=== PATIENT | female | born 1940 | race Caucasian/White ===

== ENCOUNTER 2017-01-31 19:39 | Observation (INO) ==
--- NOTE | 2017-01-31 20:13 | Emergency Department Note ---
Disposition Clinical Impression: Chest pain, HTN (hypertension), HLD (hyperlipidemia), Frail elderly, Pacemaker , History of atrial fibrillation, Peripheral edema, Hypokalemia, History of urinary tract infection Disposition: Admitted As Inpatient Referrals: NO,PCP [Non-Partnered Physician] - Forms: ED Satisfaction Letter General Adult HPI - General Chief complaint: ED Chest Pain Stated complaint: "CP/Does Have Pace Maker" Time Seen by Provider: 01/31/17 20:13 Source: patient Limitations: no limitations - History of Present Illness HPI Narrative: 76-year-old female with a history of atrial fibrillation status post pacemaker placement reports emergency department complaining of chest pain. She takes Eliquis daily. There is no history of bleeding. The patient reports left- sided chest pain which is sometimes sharp and radiates to the left arm. There is no history Of trauma rash or fall. There has been no abdominal pain vomiting or diarrhea. The patient reports she was recently treated for a UTI but still has urinary symptoms. There is no history of fever or cough or runny nose or sore throat. No difficulty moving the arms or legs independently. No sudden back pain. The patient has no personal history of DVT PE or cancer apart from local skin lesions. No systemic malignancy. She has a history of chronic lower extremity edema bilaterally and does take diuretic medication. There is no history of acute unilateral leg swelling or syncope. No coughing of blood. No previous aneurysms. She had a remote cardiac catheterization many years ago, she has no personal history of CAD or stent. The patient does not usually experience chest pain. She comes in from home with her sister. The patient has a history of hypertension hyperlipidemia. There is no history of weakness or numbness of the arms or legs, there is no history of acute headache or neck pain noted. Pain Scale: 7 - Related Data Home Medications Medication Instructions Recorded Confirmed Apixaban [Eliquis] 5 mg PO BID 01/31/17 01/31/17 Esomeprazole Magnesium [Nexium] 40 mg PO DAILY 01/31/17 01/31/17 Levothyroxine [Synthroid] 88 mcg PO 0630 01/31/17 01/31/17 Metoprolol Succinate 100 mg PO QPM 01/31/17 01/31/17 Triamterene/HCTZ 37.5/25mg 1 each PO DAILY 01/31/17 01/31/17 [Dyazide] Allergies Allergy/AdvReac Type Severity Reaction Status Date / Time cefuroxime [From Ceftin] Allergy Itching Verified 01/31/17 20:04 ciprofloxacin [From Cipro] Allergy makes my Verified 01/31/17 20:04 heart race clarithromycin Allergy Itching Verified 01/31/17 20:04 Sulfa (Sulfonamide Allergy Redness of Verified 01/31/17 20:04 Antibiotics) Skin acetaminophen AdvReac Hallucinati Verified 01/31/17 20:04 [From Darvocet-N] ng morphine AdvReac Hallucinati Verified 01/31/17 20:04 ng promethazine [From Phenergan] AdvReac Vomiting Verified 01/31/17 20:04 propoxyphene AdvReac Hallucinati Verified 01/31/17 20:04 [From Darvocet-N] ng sulfamethoxazole AdvReac See Verified 01/31/17 20:04 [From Bactrim] Comments trimethoprim [From Bactrim] AdvReac See Verified 01/31/17 20:04 Comments All systems ED: reviewed and negative except as stated. Past Medical History - Past Medical History Medical history: Reports: cancer, GERD, hyperlipidemia, hypertension, thyroid disease, other Surgical history: Reports: cholecystectomy, herniorrhaphy, hysterectomy Psychiatric history: Reports: no psych history INSTALLATION DRAFTER history: Reports: no INSTALLATION DRAFTER history - Social History Smoking Status: Former smoker Smokeless Tobacco Status: No Alcohol use: Reports: none Drug use: Reports: none Physical Exam - General Limitations: no limitations General appearance: alert, in no apparent distress - Head Head exam: atraumatic, normocephalic, normal inspection - Eye Eye exam: Present: normal appearance, PERRL, EOMI. Absent: scleral icterus, conjunctival injection, miosis, mydriasis - ENT ENT exam: normal exam, normal oropharynx, mucous membranes moist, TM's normal bilaterally, normal external ear exam - Neck Neck exam: Present: normal inspection, full ROM, trachea midline. Absent: tenderness - Chest Chest inspection: Present: symmetric chest wall rise. Absent: tenderness - Respiratory Respiratory exam: Present: normal lung sounds bilaterally. Absent: respiratory distress, wheezes, stridor, accessory muscle use, prolonged expiratory phase - Cardiovascular Cardiovascular exam: Present: regular rate, normal rhythm, normal heart sounds - Abdominal Exam Abdominal exam: Present: soft, Non-Tender, normal bowel sounds. Absent: tenderness, distention, guarding, rebound, rigidity, Yin's sign, Rovsing's sign, tenderness at McBurney's Point, ascites, pulsatile mass - Extremities Exam Extremities exam: Present: full ROM, normal capillary refill, pedal edema. Absent: tenderness, joint swelling, calf tenderness - Expanded Lower Extremity Exam Lower leg exam: Absent: Homans' sign Neurovascular/Tendon exam: Present: normal capillary refill. Absent: motor deficit, sensory deficit, tendon deficit, extremity cold to touch, pallor - Back Exam Back exam: Present: normal inspection, full ROM. Absent: tenderness, CVA tenderness (R), CVA tenderness (L), vertebral tenderness - Neurological Exam Neurological exam: Present: alert, oriented X3, CN II-XII intact. Absent: motor sensory deficit - Psychiatric Psychiatric exam: Present: normal affect, normal mood - Skin Skin exam: Present: warm, dry, intact, normal color. Absent: rash, cyanosis, diaphoresis, erythema, pallor, mottled Course Vital Signs Temperature 98.1 F 01/31/17 19:59 Pulse Rate 70 01/31/17 19:59 Respiratory Rate 16 01/31/17 19:59 Blood Pressure 141/73 01/31/17 19:59 O2 Sat by Pulse Oximetry 97 01/31/17 19:59 Temperature 98.1 F 01/31/17 19:59 Pulse Rate 70 01/31/17 19:59 Respiratory Rate 16 01/31/17 19:59 Blood Pressure 141/73 01/31/17 19:59 O2 Sat by Pulse Oximetry 97 01/31/17 19:59 Oxygen Delivery Oxygen Delivery Room Air Medical Decision Making - [facility] Narrative Medical decision making narrative: The patient is elderly, has a history of hypertension and hypercholesterolemia, her EKG is abnormal and she is complaining of chest pain. Based on her age, cardiovascular risk factors, abnormal EKG, history of atrial fibrillation with pacemaker, anticoagulant therapy, and concerns for chest pain, I thought it would be appropriate to admit the patient to the hospital. I discussed the case with the hospitalist who has accepted the patient to their care. The patient is currently stable. Aspirin has been ordered. - Lab Data Lab results reviewed: Yes I reviewed the patient's lab results. Result diagrams: 01/31/17 20:18 01/31/17 20:20 Lab Results 01/31/17 01/31/17 01/31/17 Range/Units 20:15 20:18 20:18 WBC 5.0 (4.3-11.1) K/mcL RBC 4.40 (3.82-4.97) M/mcL Hgb 12.8 (11.5-15.4) g/dL Hct 38.0 (35.3-44.9) % MCV 86.4 (83.0-100.0) fL MCH 29.1 (28.0-33.3) pg MCHC 33.7 (31.6-35.5) g/dL RDW 13.0 (11.5-14.5) % Plt Count 216 (140-400) K/mcL MPV 10.3 (9.4-12.4) fL Immature Gran % 0.2 (0-4) % Seg Neutrophils % 45.7 % Lymphocytes % 46.1 % Monocytes % 6.6 % Eosinophils % 0.8 % Basophils % 0.6 % Neutrophils # 2.3 (1.6-8.9) K/mcL Lymphocytes # 2.3 (0.6-4.6) K/mcL Monocytes # 0.3 (0.0-1.3) K/mcL Eosinophils # 0.0 (0.0-0.6) K/mcL Basophils # 0.0 (0.0-0.2) K/mcL PT 12.5 H (9.4-12.1) Seconds INR 1.2 APTT 32.0 (26.0-36.0) Seconds Sodium (136-145) mEq/L Potassium (3.5-4.5) mEq/L Chloride (98-109) mEq/L Carbon Dioxide (19-29) mEq/L BUN (7-20) mg/dL Creatinine (0.57-1.11) mg/dL Est GFR ( Amer) (> 60) Est GFR (Non-Af Amer) (> 60) BUN/Creatinine Ratio (6-26) Glucose (70-99) mg/dL Calculated Osmolality (280-300) Lactic Acid (0.5-2.2) mmol/L Calcium (8.6-10.8) mg/dL Total Bilirubin (0.2-1.2) mg/dL Direct Bilirubin (0.0-0.5) mg/dL Indirect Bilirubin (0.0-1.2) mg/dL AST (5-34) Units/L ALT (0-55) Units/L Alkaline Phosphatase (38-126) Units/L Troponin I (0-0.03) ng/mL C-Reactive Protein (Less than 5) mg/L B-Natriuretic Peptide (0-100) pg/mL Serum Total Protein (6.0-8.3) g/dL Albumin (3.5-5.0) g/dL Globulin (2.4-3.5) g/dL Albumin/Globulin Ratio (1.1-2.2) Lipase (8-78) Units/L TSH (0.350-4.840) mcIU/mL Urine Color Yellow (Yellow) Urine Clarity Clear (Clear) Urine pH 6.0 (5.0-8.0) pH Units Ur Specific [place] 1.018 (1.010-1.025) Urine Protein Negative (Neg-Trace) mg/dL Urine Glucose (UA) Normal (Normal) mg/dL Urine Ketones Negative (Negative) mg/dL Urine Blood Negative (Negative) Urine Nitrite Negative (Negative) Urine Bilirubin Negative (Negative) Urine Urobilinogen Normal (Normal) mg/dL Ur Leukocyte Esterase Negative (Negative) Ur Culture Indicated? NO (NO) 01/31/17 01/31/17 01/31/17 Range/Units 20:18 20:18 20:20 WBC (4.3-11.1) K/mcL RBC (3.82-4.97) M/mcL Hgb (11.5-15.4) g/dL Hct (35.3-44.9) % MCV (83.0-100.0) fL MCH (28.0-33.3) pg MCHC (31.6-35.5) g/dL RDW (11.5-14.5) % Plt Count (140-400) K/mcL MPV (9.4-12.4) fL Immature Gran % (0-4) % Seg Neutrophils % % Lymphocytes % % Monocytes % % Eosinophils % % Basophils % % Neutrophils # (1.6-8.9) K/mcL Lymphocytes # (0.6-4.6) K/mcL Monocytes # (0.0-1.3) K/mcL Eosinophils # (0.0-0.6) K/mcL Basophils # (0.0-0.2) K/mcL PT (9.4-12.1) Seconds INR APTT (26.0-36.0) Seconds Sodium 137 (136-145) mEq/L Potassium 3.3 L (3.5-4.5) mEq/L Chloride 100 (98-109) mEq/L Carbon Dioxide 25 (19-29) mEq/L BUN 12 (7-20) mg/dL Creatinine 0.96 (0.57-1.11) mg/dL Est GFR ( Amer) > 60 (> 60) Est GFR (Non-Af Amer) 56 L (> 60) BUN/Creatinine Ratio 13 (6-26) Glucose 100 H (70-99) mg/dL Calculated Osmolality 284 (280-300) Lactic Acid (0.5-2.2) mmol/L Calcium 9.5 (8.6-10.8) mg/dL Total Bilirubin 0.9 (0.2-1.2) mg/dL Direct Bilirubin 0.2 (0.0-0.5) mg/dL Indirect Bilirubin 0.7 (0.0-1.2) mg/dL AST 17 (5-34) Units/L ALT 12 (0-55) Units/L Alkaline Phosphatase 64 (38-126) Units/L Troponin I 0.01 (0-0.03) ng/mL C-Reactive Protein 4 (Less than 5) mg/L B-Natriuretic Peptide 36 (0-100) pg/mL Serum Total Protein 7.6 (6.0-8.3) g/dL Albumin 4.0 (3.5-5.0) g/dL Globulin 3.6 H (2.4-3.5) g/dL Albumin/Globulin Ratio 1.1 (1.1-2.2) Lipase 57 (8-78) Units/L TSH 3.125 (0.350-4.840) mcIU/mL Urine Color (Yellow) Urine Clarity (Clear) Urine pH (5.0-8.0) pH Units Ur Specific [place] (1.010-1.025) Urine Protein (Neg-Trace) mg/dL Urine Glucose (UA) (Normal) mg/dL Urine Ketones (Negative) mg/dL Urine Blood (Negative) Urine Nitrite (Negative) Urine Bilirubin (Negative) Urine Urobilinogen (Normal) mg/dL Ur Leukocyte Esterase (Negative) Ur Culture Indicated? (NO) 01/31/17 Range/Units 20:20 WBC (4.3-11.1) K/mcL RBC (3.82-4.97) M/mcL Hgb (11.5-15.4) g/dL Hct (35.3-44.9) % MCV (83.0-100.0) fL MCH (28.0-33.3) pg MCHC (31.6-35.5) g/dL RDW (11.5-14.5) % Plt Count (140-400) K/mcL MPV (9.4-12.4) fL Immature Gran % (0-4) % Seg Neutrophils % % Lymphocytes % % Monocytes % % Eosinophils % % Basophils % % Neutrophils # (1.6-8.9) K/mcL Lymphocytes # (0.6-4.6) K/mcL Monocytes # (0.0-1.3) K/mcL Eosinophils # (0.0-0.6) K/mcL Basophils # (0.0-0.2) K/mcL PT (9.4-12.1) Seconds INR APTT (26.0-36.0) Seconds Sodium (136-145) mEq/L Potassium (3.5-4.5) mEq/L Chloride (98-109) mEq/L Carbon Dioxide (19-29) mEq/L BUN (7-20) mg/dL Creatinine (0.57-1.11) mg/dL Est GFR ( Amer) (> 60) Est GFR (Non-Af Amer) (> 60) BUN/Creatinine Ratio (6-26) Glucose (70-99) mg/dL Calculated Osmolality (280-300) Lactic Acid 1.3 (0.5-2.2) mmol/L Calcium (8.6-10.8) mg/dL Total Bilirubin (0.2-1.2) mg/dL Direct Bilirubin (0.0-0.5) mg/dL Indirect Bilirubin (0.0-1.2) mg/dL AST (5-34) Units/L ALT (0-55) Units/L Alkaline Phosphatase (38-126) Units/L Troponin I (0-0.03) ng/mL C-Reactive Protein (Less than 5) mg/L B-Natriuretic Peptide (0-100) pg/mL Serum Total Protein (6.0-8.3) g/dL Albumin (3.5-5.0) g/dL Globulin (2.4-3.5) g/dL Albumin/Globulin Ratio (1.1-2.2) Lipase (8-78) Units/L TSH (0.350-4.840) mcIU/mL Urine Color (Yellow) Urine Clarity (Clear) Urine pH (5.0-8.0) pH Units Ur Specific [place] (1.010-1.025) Urine Protein (Neg-Trace) mg/dL Urine Glucose (UA) (Normal) mg/dL Urine Ketones (Negative) mg/dL Urine Blood (Negative) Urine Nitrite (Negative) Urine Bilirubin (Negative) Urine Urobilinogen (Normal) mg/dL Ur Leukocyte Esterase (Negative) Ur Culture Indicated? (NO) - Radiology Data Radiology results reviewed: Yes I reviewed the patient's radiology results.
[2017-01-31 20:26] LABS: Basophils % 0.6 %; Eosinophils % 0.8 %; Hemoglobin 12.8 g/dL (11.5-15.4); Immature Granulocytes % 0.2 % (0-4); Lymphocytes # 2.3 K/mcL (0.6-4.6); Lymphocytes % 46.1 %; Mean Corpuscular HGB Conc 33.7 g/dL (31.6-35.5); Mean Corpuscular Hemoglobin 29.1 pg (28.0-33.3); Mean Corpuscular Volume 86.4 fL (83.0-100.0); Mean Platelet Volume 10.3 fL (9.4-12.4); Monocytes # 0.3 K/mcL (0.0-1.3); Monocytes % 6.6 %; Neutrophils # 2.3 K/mcL (1.6-8.9); Platelet Count 216 K/mcL (140-400); Segmented Neutrophils % 45.7 %
[2017-01-31 20:32] LABS: INR 1.2; Prothrombin Time 12.5 Seconds (9.4-12.1)
[2017-01-31 20:42] LABS: Alanine Aminotransferase 12 Units/L (0-55); Albumin/Globulin Ratio 1.1 (1.1-2.2); Alkaline Phosphatase 64 Units/L (38-126); Aspartate Amino Transferase 17 Units/L (5-34); BUN/Creatinine Ratio 13 (6-26); Bilirubin,Direct 0.2 mg/dL (0.0-0.5); Bilirubin,Indirect 0.7 mg/dL (0.0-1.2); Bilirubin,Total 0.9 mg/dL (0.2-1.2); Blood Urea Nitrogen 12 mg/dL (7-20); Calcium 9.5 mg/dL (8.6-10.8); Carbon Dioxide 25 mEq/L (19-29); Chloride 100 mEq/L (98-109); Globulin 3.6 g/dL (2.4-3.5); Glucose 100 mg/dL (70-99); Lipase 57 Units/L (8-78); Osmolality,Calculated 284 (280-300); Potassium 3.3 mEq/L (3.5-4.5); Sodium 137 mEq/L (136-145); Total Protein 7.6 g/dL (6.0-8.3); eGFR For African Americans > 60 (> 60); eGFR For Non-African Americans 56 (> 60)
[2017-01-31 20:52] LABS: C-Reactive Protein 4 mg/L (Less than 5)
[2017-01-31 21:02] LABS: Bilirubin,Urine Negative (Negative); Blood,Urine Negative (Negative); Clarity,Urine Clear (Clear); Color,Urine Yellow (Yellow); Glucose,Urine (UA) Normal (Normal); Ketones,Urine Negative (Negative); Leukocyte Esterase,Urine Negative (Negative); Nitrite,Urine Negative (Negative); Protein,Urine Negative (Neg-Trace); Specific Gravity,Urine 1.018 (1.010-1.025); Urobilinogen,Urine Normal (Normal)
[2017-01-31 21:03] LABS: Thyroid Stimulating Hormone 3.125 mcIU/mL (0.350-4.840)
[2017-01-31] MEDS ORDERED: Aspirin 325 MG TABLET PO ONE (21:29)
[2017-02-01] MEDS ORDERED: Naloxone 0.4 MG/ML INJ IVP PRN (00:44)
[2017-02-01] MEDS ORDERED: Metoprolol XL (24 HR) Succ 50 MG TAB.ER.24H PO SCH (00:45)
--- NOTE | 2017-02-01 00:48 | Internal Med History&Physical ---
Date of Encounter: 02/01/17 Time of Encounter: 00:20 Assessment and Plan (1) Chest pain Current visit: Yes Status: Acute patient with no known prior personal history of CAD but with risk factors of CAD ; age, HTN, dyslipidemia, as well as significant family history of premature CAD comes in with chest pain with both typical and atypical features concerning enough to warrant a stress test, her EKG was AFIB with no ischemic changes, her troponin was unremarkable, we will admit her for telemonitoring, cycle trops, check A1c and lipid profile, NPO for stress test in AM Qualifiers: Chest pain type: intercostal pain Qualified Code(s): R07.82 - Intercostal pain (2) Hypokalemia Current visit: Yes Status: Acute etiology may be related to cellular shifts or poor oral intake, we will replace and follow BMP (3) Hypothyroidism Current visit: Yes Status: Chronic will continue home dose of synthroid Qualifiers: Hypothyroidism type: acquired Qualified Code(s): E03.9 - Hypothyroidism, unspecified (4) GERD (gastroesophageal reflux disease) Current visit: Yes Status: Chronic will continue PPI Qualifiers: Esophagitis presence: without esophagitis Qualified Code(s): K21.9 - Gastro -esophageal reflux disease without esophagitis (5) HTN (hypertension) Current visit: Yes Status: Chronic will continue home medications with BP monitoring Qualifiers: Hypertension type: essential hypertension Qualified Code(s): I10 - Essential (primary) hypertension (6) History of atrial fibrillation Current visit: Yes Status: Chronic she is on systemic anticoagulation and rate control with metoprolol which we will continue Internal Medicine - H&P: HPI Chief complaint: Chest pain Admitted From: Emergency Dept Plans for Post Hospital Care: Home History of present illness: Ms. Mills is a 76 year old female with a history of PAF on eliquis/HTN who was brought in for chest pain. She was in her usual state of health until this morning at around 6-6:30am whilst she was trying to get her daughter to the hospital for cataract surgery when she had chest pain. The pain was located on the left side of her chest around her pacemaker, radiated to the left shoulder, was 9/10 in severity and constant. At some point it was pressure-like, she took no medications for it, the pain never went away but improved slightly to a 7/10 in severity. She waited it out until the evening when her sister convinced her to come in due to the description and persistence. She reports that she has ever had anything like this before. Her pain was associated with diaphoresis, and lightheadedness as well as nausea but no vomiting, feeling of apprehension, palpitations or dyspnea. The pain was made worse with bending over. In the ER of [place] she was found to be in AFIB but rate was controlled. She had a stress test about 3 years ago prior to her pacemaker placement that was unremarkable. 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), pacemaker (for tachybrady syndrome) - Social History Smoking Status: Former smoker Packs per day: quit in 1998 after smoking a pack and a half from the age of 17 years Smokeless Tobacco Status: No Alcohol use: occasionally Drug use: none Current living situation: Home - Independent, With Family Activity Level: Independent ambulation - Family History Father Living Status: Hx Family Cardiac Disorders: Yes Hx Family Endocrine Disorder: Yes (diabetes) Mother Living Status: Cause of : kidney failre Hx Family Cardiac Disorders: Yes Hx Family Neuromuscular Disorders: No Hx Family Neurologic Disorders: Yes (seizures) - Additional Family History Additional family history: her elder brother had an MT in his 60's and is s/p CABG, he also had an abdominal aneurysm repair, her younger brother had an MT in his 50's ad is also s/p CABG, her sister at bedside had an MT in her 50's, her father had DM and heart problems, mother in her 30's of kidney failure Internal Medicine - H&P: Meds Apixaban [Eliquis] 5 mg PO BID 01/31/17 [History] Esomeprazole Magnesium [Nexium] 40 mg PO DAILY 01/31/17 [History] Levothyroxine [Synthroid] 88 mcg PO 0630 01/31/17 [History] Metoprolol Succinate 100 mg PO QPM 01/31/17 [History] Triamterene/HCTZ 37.5/25mg [Dyazide] 1 each PO DAILY 01/31/17 [History] Allergies cefuroxime [From Ceftin] Allergy (Verified 01/31/17 20:04) Itching ciprofloxacin [From Cipro] Allergy (Verified 01/31/17 20:04) makes my heart race clarithromycin Allergy (Verified 01/31/17 20:04) Itching Sulfa (Sulfonamide Antibiotics) Allergy (Verified 01/31/17 20:04) Redness of Skin acetaminophen [From Darvocet-N] Adverse Reaction (Verified 01/31/17 20:04) Hallucinating morphine Adverse Reaction (Verified 01/31/17 20:04) Hallucinating promethazine [From Phenergan] Adverse Reaction (Verified 01/31/17 20:04) Vomiting propoxyphene [From Darvocet-N] Adverse Reaction (Verified 01/31/17 20:04) Hallucinating sulfamethoxazole [From Bactrim] Adverse Reaction (Verified 01/31/17 20:04) See Comments trimethoprim [From Bactrim] Adverse Reaction (Verified 01/31/17 20:04) See Comments All Systems PM: A 10-system review of systems was performed and is negative for pertinent findings except as documented above in the HPI. - Constitutional Vitals: Temp Pulse Resp BP Pulse Ox 97.4 F L 73 16 133/72 100 01/31/17 23:51 01/31/17 23:51 01/31/17 23:51 01/31/17 23:51 01/31/17 23:51 PHYSICAL EXAMINATION: GENERAL: Elderly female, lying in bed with no sign of pain, Alert, HEENT: NC/AT, EOMI, PERRLA, anicteric sclera, normal conjunctiva, supple, clear nares, moist mucous membranes, clear oropharynx, RESP: lungs are clear to auscultation bilaterally, good AE bilaterally, No crackles or wheeze CARDIO: left sided pacemaker, no chest tenderness, Normal hearts sounds; S1 and 2, RRR with no murmurs, no JVD, no ankle edema GI: Soft, full, non tender, no organomegaly felt, normal bowel sounds heard MUSCULOSKELETAL: grossly normal movements bilaterally, no deformities noted, no calf tenderness NEUROLOGIC: CN 2-12 intact grossly. No motor/sensory deficit appreciated, PSYCHIATRY: AAO x 3. Mood is fair, SKIN: right lateral eye darkened patch otherwise no rash Internal Med - H&P Results - Labs CBC & Chem 7: 01/31/17 20:18 02/01/17 02:45 - EKG Data -: EKG Interpreted by Myself - EKG Data Prior EKG available for review: yes When compared to previous EKG: there is no significant change - Diagnostic Studies Chest x-ray Status: image reviewed by me
[2017-02-01] MEDS ORDERED: Potassium Chloride Elixir 20 MEQ/15 ML UDC PO ONE (01:07)
[2017-02-01] MEDS: APIXABAN 5 MG TABLET PO SCH ×2 (01:14→09:47)
[2017-02-01 04:10] LABS: Hemoglobin A1C 5.5 %
[2017-02-01 04:24] LABS: BUN/Creatinine Ratio 11 (6-26); Blood Urea Nitrogen 10 mg/dL (7-20); Calcium 9.2 mg/dL (8.6-10.8); Carbon Dioxide 26 mEq/L (19-29); Chloride 103 mEq/L (98-109); Chol/HDL Ratio 4.8 (0-4.9); Cholesterol 212 mg/dL (< 200); Glucose 101 mg/dL (70-99); HDL Cholesterol 44 mg/dL (40-59); LDL Cholesterol,Calculated 142 mg/dL (0-99); Osmolality,Calculated 287 (280-300); Phosphorous 3.6 mg/dL (2.3-4.7); Potassium 3.9 mEq/L (3.5-4.5); Sodium 139 mEq/L (136-145); Triglycerides 129 mg/dL (< 150); eGFR For African Americans > 60 (> 60); eGFR For Non-African Americans > 60 (> 60)
[2017-02-01] MEDS ORDERED: Regadenoson 0.4 MG/5 ML SYRINGE IVP ONE (06:59)
--- NOTE | 2017-02-01 09:51 | Nuclear Medicine Stress Report ---
Regadenoson Nuclear Stress Name: Anna Mills Date of Study: 02/01/2017 Date: 1940 Ht: 64.0 in Medical Record#: [id number] Age: 76 Wt: 175.0 lb Gender: Female Order #: [id number] Location: [facility] Room: [facility] Supervising Provider: Amanda Vallejo CNP Reading Physician: Nehal Irvin DO Ordering Physician: Josefa Craig CNP Primary Care Physician: Liv Salvador DO Stress Technologist: Sonia Vasquez, DRY ROLLER, CCT, CPFT Histologic Aide: Dwayne Barroso Indications: Chest Pain Impression: Perfusion imaging was negative for ischemia or infarct. Pharmacologic ECG was non diagnostic for ischemia. Gated EF = >70%. History: Hypertension Hypercholesteremia Stress Test Summary: Stress Test Type: Pharmacologic Regadenoson 0.4mg/5ml given IV Baseline Information: Initial Heart Rate: 73 Blood Pressure: 144/80 Stress Information: Stress Time: 4 min sec Test Terminated Due to (primary): As per protocol Maximum Blood Pressure: 160/82 Maximum Heart Rate: 95 Percent Maximum Heart Rate Achieved: 66 Double Product: [id number] METS Reached: 1 Symptoms: Shortness of breath Nuclear Summary: SPECT myocardial perfusion imaging using Tc99m Sestamibi given intravenously was performed at rest and following cardiac stress testing. The resting images were obtained following initial dose of 11.1 mCi. Following stress an additional dose of 35.2 mCi was given at peak exercise or 30 seconds post regadenoson infusion. Medication Given: Time Medication Dose Units Route Findings: Stress Note * Resting ECG demonstrated normal sinus rhythm with first degree AVB, possible RV conduction delay and nonspecific ST abnormalities. * Pharmacologic ECG is non-diagnostic for ischemia due to baseline abnormalities. * No arrhythmias were noted during stress. * Patient had no chest pain during stress. Hemodynamic responses * Normal hemodynamic responses to pharmacologic stress. Study Quality * Study quality is good. Gated EF > 70% * Gated EF > 70%. Left Ventricle * The left ventricle is not dilated. NORMALS * Normal wall motion. * Normal segmental perfusion in stress. * Normal Segmental Perfusion in rest. TID * No evidence of transient ischemic dilatation. Lung Uptake * There is no evidence of increase lung uptake. Updated by Nehal Irvin on 02/01/2017 9:46:28 AM electronically signed on 02/01/2017 9:46:45 AM with status of Final
[2017-02-01 10:34] VITALS: BP 129/70
--- NOTE | 2017-02-01 13:43 | Discharge Summary ---
Date of Encounter: 02/01/17 Time of Encounter: 10:25 - Discharge Diagnosis (1) Chest pain Priority: Primary Status: Acute Comments: Patient reports sudden onset chest pain and pressure that began yesterday morning with exertion. She said she was getting ready and then over to put her shoes on. At its worst it was a 10/10 pain. She reports positive shortness of breath and nausea, diaphoresis. She denies emesis. She said it lasted about 12 + hours and became worse with deep inspiration. There is no change with exertion now. She said there was radiation of the pain and her left chest and shoulder and underneath her left arm. She is pain-free now, but states that it feels sore with inspiration. It is also tender to palpation. I feel this is more musculoskeletal chest pain than cardiac. Troponins were negative 3, A1c is 5.5, cholesterol is elevated but patient states she is not interested in starting a statin. She is currently already on an aspirin and a beta antonietta. Stress test today was negative for ischemia or infarct, and her gated EF was greater than 70%. There is no respiratory distress, S1-S2 regular rate and rhythm. No peripheral edema that is new for the patient. Lungs are clear anteriorly and posteriorly. Qualifiers: Chest pain type: intercostal pain Qualified Code(s): R07.82 - Intercostal pain (2) HTN (hypertension) Priority: Secondary Status: Chronic Comments: Chronic. continue home medications Qualifiers: Hypertension type: essential hypertension Qualified Code(s): I10 - Essential (primary) hypertension (3) HLD (hyperlipidemia) Priority: Secondary Status: Acute Comments: Cholesterol 212. Patient states her family physician does monitor it, as well. She is not interested in starting a statin. Qualifiers: Hyperlipidemia type: unspecified Qualified Code(s): E78.5 - Hyperlipidemia , unspecified (4) Hypokalemia Priority: Secondary Status: Resolved Comments: Resolved. Potassium 3.9. (5) GERD (gastroesophageal reflux disease) Priority: Secondary Status: Chronic Comments: Chronic. Continue home medications. Qualifiers: Esophagitis presence: without esophagitis Qualified Code(s): K21.9 - Gastro -esophageal reflux disease without esophagitis - Discharge Medications Home Medications: Apixaban [Eliquis] 5 mg PO BID 01/31/17 [History] Esomeprazole Magnesium [Nexium] 40 mg PO DAILY 01/31/17 [History] Levothyroxine [Synthroid] 88 mcg PO 0630 01/31/17 [History] Metoprolol Succinate 100 mg PO QPM 01/31/17 [History] Triamterene/HCTZ 37.5/25mg [Dyazide] 1 each PO DAILY 01/31/17 [History] Allergies/Adverse Reactions: Allergies cefuroxime [From Ceftin] Allergy (Verified 01/31/17 20:04) Itching ciprofloxacin [From Cipro] Allergy (Verified 01/31/17 20:04) makes my heart race clarithromycin Allergy (Verified 01/31/17 20:04) Itching Sulfa (Sulfonamide Antibiotics) Allergy (Verified 01/31/17 20:04) Redness of Skin acetaminophen [From Darvocet-N] Adverse Reaction (Verified 01/31/17 20:04) Hallucinating morphine Adverse Reaction (Verified 01/31/17 20:04) Hallucinating promethazine [From Phenergan] Adverse Reaction (Verified 01/31/17 20:04) Vomiting propoxyphene [From Darvocet-N] Adverse Reaction (Verified 01/31/17 20:04) Hallucinating sulfamethoxazole [From Bactrim] Adverse Reaction (Verified 01/31/17 20:04) See Comments trimethoprim [From Bactrim] Adverse Reaction (Verified 01/31/17 20:04) See Comments Procedures/tests Complete & Pending: Procedures Performed prior 72 hours Category Date Time Status NM padmini perf SPECT multi [NM] Routine Exams 02/01/17 00:46 Taken SP pharm nuclear stress Routine Y 02/01/17 00:46 Completed Date of admission: 01/31/17 23:14 Primary care physician: Liv Egan Discharging clinician: Josefa Craig Anticipated date of discharge: 02/01/17 - Patient Status Disposition: Home, Self-Care Condition: Good Functional capacity at discharge: independent ambulation Overall status at discharge: patient is back to baseline - Discharge Instructions Follow Up With: Liv Egan DO [Primary Care Provider] - Additional Instructions: Please return to the ER if your symptoms return or if you have any other problems or concerns. Resume your home medications. Tylenol and covered heating pad to help alleviate your chest pain. Rest and drink plenty of fluids. - Diet and Activity Activity: increase activity as tolerated Diet: advance to your usual diet Interval History: Mrs. Pina is a 76-year-old female with a prior medical history of hypothyroidism, GERD, A. fib with anticoagulation and rate control with beta antonietta, and hypertension. He is brought to the emergency department for chest pain that lasted about 12 hours. She said that she was bending over to put her shoes on and she began having left chest pain. The pain radiated laterally to left midaxillary area and also to the left shoulder. She said its worse it was 10 out of 10. She did report nausea and shortness of breath as well as diaphoresis. She denies emesis. The pain was worse with inspiration and there is no relation to exertion. Family finally made her come to the emergency department. She has been pain-free since the emergency room last night. It is tender to palpation in the area where she describes the pain. I believe that this is intercostal musculoskeletal pain. We discussed Tylenol and a heating pad and fluids to alleviate the pain. She verbalized understanding. Patient's troponins were negative 3 her A1c is 5.5, her cholesterol is mildly elevated and she is not interested in starting a statin. She is a nonsmoker. She had a stress test this morning that was negative for ischemia or infarct with a gated EF of greater than 70%. Her labs are within normal limits as are her vital signs. She will continue her medications at home. She is pain free and anxious to get home. Patient is stable and appropriate for discharge home. Sister is here will be driving patient Hospital course: Ms. Mills is a 76 year old female - Time Spent with Patient Total time spent providing and/or coordinating discharge services: Less than 30 minutes - Constitutional Vitals: Temp Pulse Resp BP Pulse Ox 97.5 F L 70 70 129/70 93 02/01/17 10:33 02/01/17 10:33 02/01/17 10:33 02/01/17 10:33 02/01/17 10:33 General appearance: Present: cooperative, A&O X 3, pleasant, answers questions appropriately - Eye Eye exam: Present: normal appearance, conjuntiva pink - Neck Neck exam general surgery: Present: normal inspection. Absent: lymphadenopathy , tenderness - Respiratory Respiratory exam: Present: chest wall tenderness, CTAB. Absent: rales, respiratory distress, rhonchi, stridor, wheezes - Cardiovascular Cardiovascular exam: Present: RRR, +S1, +S2. Absent: bradycardia, clicks, diastolic murmur, gallop, irregular rhythm, systolic murmur - GI/Abdominal GI/Abdominal exam: Present: normal bowel sounds, soft. Absent: distended, hepatomegaly, tenderness - Extremities Exam Extremities exam: Present: full ROM, normal capillary refill, normal inspection , warm, radial pulses palpable and symetrical. Absent: pedal edema, tenderness - Neurological Exam Neurological exam: Present: alert, oriented X3, no focal deficits, strengths equal and symetr throughout
--- NOTE | 2017-02-04 16:53 | Electrocardiograph Report ---
[place] [id number] Test Date: 2017-01-31 Pat Name: Anna Mills Department: 103 Room: 3B43 Gender: F Help Desk Internship: ENRIQUE : 1940 Requested By: Paul Riley Order Number: [id number] Reading MD: Tu Strong Measurements Intervals Christine Rate: 78 P: 35 NH: 197 QRS: -8 QRSD: 80 T: 17 QT: 377 QTc: 411 Interpretive Statements SINUS RHYTHM POSSIBLE LEFT ATRIAL ENLARGEMENT MODERATE ST DEPRESSION Electronically Signed On 02-04-2017 16:51:46 EDT by Tu Strong
== END 2017-02-01 14:32 | disposition home or self-care (01) ==
LOC: EMEROO 19:39 → 3BNU 19:39
PROVIDERS: ADMIT Hospitalist; ATTEND Registered Nurse

== ENCOUNTER 2021-06-09 15:00 | Inpatient (IN) ==
[2021-06-09] MEDS ORDERED: 0.9 % Sodium Chloride 1,000 ML IVC ONE (15:08)
[2021-06-09] MEDS ORDERED: Doxycycline 100 MG in 0.9 % Sodium Chloride Mini Bag 100 ML IVPB ONE (16:11)
[2021-06-09] MEDS ORDERED: cefTRIAXone 1,000 MG in 0.9 % Sodium Chloride Mini Bag 100 ML IVPB ONE (16:11)
[2021-06-09 16:18] LABS: Bacteria,Urine Few per hpf (None-Few); Bilirubin,Urine Negative (Negative); Blood,Urine Trace (Negative); Clarity,Urine Clear (Clear); Color,Urine Light-Yellow (Yellow); Glucose,Urine (UA) Normal (Normal); Ketones,Urine Negative (Negative); Leukocyte Esterase,Urine Moderate (Negative); Mucus,Urine Few per lpf (None-Few); Nitrite,Urine Negative (Negative); Protein,Urine 50 mg/dL (Neg-Trace); RBC,Urine 15-30 per hpf (0-3); Specific Gravity,Urine 1.015 (1.010-1.025); Squamous Epithelial Cell,Urine Few per hpf (None-Few); Transitional Epi Cells,Urine Few per hpf (None-Few); Urobilinogen,Urine Normal (Normal); WBC,Urine TNTC per hpf (0-3)
[2021-06-09 16:31] LABS: Hematocrit 37.8 % (35.3-44.9); Hemoglobin 13.7 g/dL (11.5-15.4); Immature Granulocytes % 0.3 % (0-4); Immature Platelets 10.7 % (1.1-6.1); Lymphocytes # 0.7 K/mcL (0.6-4.6); Lymphocytes % 16.8 %; Mean Corpuscular HGB Conc 36.2 g/dL (31.6-35.5); Mean Corpuscular Hemoglobin 30.2 pg (28.0-33.3); Mean Corpuscular Volume 83.4 fL (83.0-100.0); Mean Platelet Volume 11.3 fL (9.4-12.4); Monocytes # 0.1 K/mcL (0.0-1.3); Monocytes % 3.6 %; Neutrophils # 3.1 K/mcL (1.6-8.9); Platelet Count 121 K/mcL (140-400); Red Blood Count 4.53 M/mcL (3.82-4.97); Red Cell Distribution Width 12.3 % (11.5-14.5); Segmented Neutrophils % 79.3 %; White Blood Count 3.9 K/mcL (4.3-11.1)
[2021-06-09 16:50] LABS: BUN/Creatinine Ratio 13 (6-26); Blood Urea Nitrogen 13 mg/dL (8-23); Calcium 8.6 mg/dL (8.6-10.3); Carbon Dioxide 25 mEq/L (23-29); Chloride 84 mEq/L (98-107); Glucose 108 mg/dL (70-105); Osmolality,Calculated 253 (280-300); Potassium 2.9 mEq/L (3.5-5.1); Sodium 121 mEq/L (136-145); eGFR For African Americans > 60 (> 60); eGFR For Non-African Americans 52 (> 60)
[2021-06-09 16:54] LABS: Troponin I 0.04 ng/mL (< 0.04)
[2021-06-09] MEDS ORDERED: Naloxone 0.4 MG/ML INJ IVP PRN (17:39)
[2021-06-09] MEDS ORDERED: Mag Hydrox/Al Hydrox/Simeth 30 ML UDC PO PRN (17:39)
[2021-06-09] MEDS: Apixaban 5 MG TABLET PO SCH (19:56)
[2021-06-09 20:26] LABS: C-Reactive Protein 41 mg/L (Less than 10); Lactate Dehydrogenase 191 Units/L (140-271)
[2021-06-09 20:44] LABS: Ferritin 566 ng/mL (10-120)
[2021-06-10 05:08] LABS: Basophils % 0.3 %; Hematocrit 36.7 % (35.3-44.9); Immature Granulocytes % 0.3 % (0-4)
[2021-06-10] MEDS: Doxycycline 100 MG in 0.9 % Sodium Chloride Mini Bag 100 ML IVPB SCH ×2 (05:08→16:51)
[2021-06-10 05:10] LABS: Hemoglobin 12.9 g/dL (11.5-15.4); Immature Platelets 11.5 % (1.1-6.1); Lymphocytes # 0.8 K/mcL (0.6-4.6); Lymphocytes % 26.5 %; Mean Corpuscular HGB Conc 35.1 g/dL (31.6-35.5); Mean Corpuscular Hemoglobin 29.5 pg (28.0-33.3); Mean Corpuscular Volume 83.8 fL (83.0-100.0); Mean Platelet Volume 11.8 fL (9.4-12.4); Monocytes # 0.1 K/mcL (0.0-1.3); Monocytes % 3.8 %; Platelet Count 102 K/mcL (140-400); Red Blood Count 4.38 M/mcL (3.82-4.97); Red Cell Distribution Width 12.5 % (11.5-14.5); Segmented Neutrophils % 69.1 %; White Blood Count 3.1 K/mcL (4.3-11.1)
[2021-06-10 05:12] LABS: Neutrophils # 2.1 K/mcL (1.6-8.9)
[2021-06-10 05:44] LABS: Troponin I 0.03 ng/mL (< 0.04)
[2021-06-10 06:32] LABS: Alanine Aminotransferase 20 Units/L (7-52); Albumin 3.9 g/dL (3.5-5.7); Albumin/Globulin Ratio 1.6 (1.1-2.2); Alkaline Phosphatase 38 Units/L (34-104); Aspartate Amino Transferase 40 Units/L (13-39); BUN/Creatinine Ratio 15 (6-26); Bilirubin,Total 0.7 mg/dL (0.3-1.0); Blood Urea Nitrogen 13 mg/dL (8-23); Calcium 8.3 mg/dL (8.6-10.3); Carbon Dioxide 17 mEq/L (23-29); Chloride 88 mEq/L (98-107); Globulin 2.5 g/dL (2.4-3.5); Glucose 84 mg/dL (70-105); Osmolality,Calculated 251 (280-300); Potassium 3.1 mEq/L (3.5-5.1); Sodium 121 mEq/L (136-145); Total Protein 6.4 g/dL (6.4-8.9); eGFR For African Americans > 60 (> 60); eGFR For Non-African Americans > 60 (> 60)
[2021-06-10] MEDS: Apixaban 5 MG TABLET PO SCH ×2 (08:28→20:44)
[2021-06-10] MEDS ORDERED: 0.9 % Sodium Chloride 1,000 ML IVC SCH (13:30)
[2021-06-10] MEDS: cefTRIAXone 1,000 MG in Water for inj. (sterile) 10 ML IVP SCH (16:54)
[2021-06-10] MEDS: Melatonin 3 MG TABLET PO PRN (20:44)
[2021-06-10] MEDS ORDERED: Ibuprofen 400 MG TABLET PO ONE (20:58)
[2021-06-11] MEDS: Doxycycline 100 MG in 0.9 % Sodium Chloride Mini Bag 100 ML IVPB SCH ×2 (05:09→17:14)
[2021-06-11] MEDS: Apixaban 5 MG TABLET PO SCH ×2 (08:42→20:45)
[2021-06-11 08:50] LABS: Sodium, Urine 135.7 mEq/L
[2021-06-11 09:49] LABS: Hemoglobin 12.7 g/dL (11.5-15.4); Immature Platelets 11.2 % (1.1-6.1); Mean Corpuscular HGB Conc 35.3 g/dL (31.6-35.5); Mean Corpuscular Hemoglobin 29.5 pg (28.0-33.3); Mean Corpuscular Volume 83.7 fL (83.0-100.0); Mean Platelet Volume 11.8 fL (9.4-12.4); Red Blood Count 4.3 M/mcL (3.82-4.97); Red Cell Distribution Width 12.8 % (11.5-14.5); White Blood Count 3.2 K/mcL (4.3-11.1)
[2021-06-11 09:50] LABS: BUN/Creatinine Ratio 16 (6-26); Blood Urea Nitrogen 14 mg/dL (8-23); Calcium 8.5 mg/dL (8.6-10.3); Carbon Dioxide 22 mEq/L (23-29); Chloride 92 mEq/L (98-107); Glucose 94 mg/dL (70-105); Osmolality,Calculated 258 (280-300); Potassium 2.9 mEq/L (3.5-5.1); Sodium 124 mEq/L (136-145); eGFR For African Americans > 60 (> 60); eGFR For Non-African Americans > 60 (> 60)
[2021-06-11 10:43] LABS: Thyroid Stimulating Hormone 2.966 mcIU/mL (0.340-5.600)
[2021-06-11] MEDS: cefTRIAXone 1,000 MG in Water for inj. (sterile) 10 ML IVP SCH (17:07)
[2021-06-11] MEDS: DilTIAZem 50 MG/50 ML IV.SOLN IVC SCH (18:34)
[2021-06-11] MEDS: Melatonin 3 MG TABLET PO PRN (20:53)
[2021-06-12] MEDS ORDERED: Ketorolac 30 MG/ML VIAL IVP ONE (00:24)
[2021-06-12] MEDS: DilTIAZem 50 MG/50 ML IV.SOLN IVC SCH (03:42)
[2021-06-12] MEDS: Doxycycline 100 MG in 0.9 % Sodium Chloride Mini Bag 100 ML IVPB SCH ×2 (05:26→17:34)
[2021-06-12 06:33] LABS: Red Cell Distribution Width 12.9 % (11.5-14.5)
[2021-06-12 06:35] LABS: Hematocrit 35.7 % (35.3-44.9); Hemoglobin 12.2 g/dL (11.5-15.4); Immature Platelets 10.3 % (1.1-6.1); Mean Corpuscular HGB Conc 34.2 g/dL (31.6-35.5); Mean Corpuscular Hemoglobin 29.2 pg (28.0-33.3); Mean Corpuscular Volume 85.4 fL (83.0-100.0); Mean Platelet Volume 11.2 fL (9.4-12.4); Red Blood Count 4.18 M/mcL (3.82-4.97); White Blood Count 3.4 K/mcL (4.3-11.1)
[2021-06-12 06:58] LABS: Calcium 8.3 mg/dL (8.6-10.3); Potassium 3.1 mEq/L (3.5-5.1)
[2021-06-12] MEDS: Apixaban 5 MG TABLET PO SCH ×2 (07:28→20:06)
[2021-06-12] MEDS ORDERED: Potassium Chloride 40 MEQ, Lidocaine 1% 2 ML in 0.9 % Sodium Chloride 500 ML IVPB ONE (07:39)
[2021-06-12] MEDS ORDERED: 0.9 % Sodium Chloride 250 ML IVC ONE (07:40)
[2021-06-12] MEDS: Metoprolol XL (24 HR) Succ 50 MG TAB.ER.24H PO SCH ×2 (09:43→20:06)
[2021-06-12] MEDS ORDERED: EPINEPHrine 1 MG/ML VIAL IM PRN (12:06)
[2021-06-12] MEDS ORDERED: methylPREDNISolone 125 MG/2 ML VIAL IVP PRN (12:06)
[2021-06-12] MEDS ORDERED: Casirivimab/Imdevima 600/600MG 1,200 MG in 0.9 % Sodium Chloride 50 ML IVPB ONE (12:06)
[2021-06-12] MEDS ORDERED: 0.9 % Sodium Chloride w KCl 20 MEQ/1,000 ML MLS IVC SCH (14:15)
[2021-06-12] MEDS: cefTRIAXone 1,000 MG in Water for inj. (sterile) 10 ML IVP SCH (15:17)
[2021-06-12] MEDS: Ondansetron ODT 4 MG TAB.RAPDIS SL PRN (15:44)
[2021-06-13 02:17] LABS: Hematocrit 35.2 % (35.3-44.9); Immature Platelets 10.2 % (1.1-6.1); Mean Corpuscular HGB Conc 34.1 g/dL (31.6-35.5); Mean Corpuscular Hemoglobin 29.7 pg (28.0-33.3); Mean Corpuscular Volume 87.1 fL (83.0-100.0); Mean Platelet Volume 11.3 fL (9.4-12.4); Red Blood Count 4.04 M/mcL (3.82-4.97); Red Cell Distribution Width 13.1 % (11.5-14.5); White Blood Count 3.6 K/mcL (4.3-11.1)
[2021-06-13 02:38] LABS: BUN/Creatinine Ratio 19 (6-26); Blood Urea Nitrogen 17 mg/dL (8-23); Carbon Dioxide 18 mEq/L (23-29); Chloride 96 mEq/L (98-107); Glucose 89 mg/dL (70-105); Osmolality,Calculated 259 (280-300); Potassium 3.6 mEq/L (3.5-5.1); Sodium 124 mEq/L (136-145); eGFR For African Americans > 60 (> 60); eGFR For Non-African Americans 59 (> 60)
[2021-06-13] MEDS: Doxycycline 100 MG in 0.9 % Sodium Chloride Mini Bag 100 ML IVPB SCH ×2 (05:26→17:33)
[2021-06-13] MEDS: Apixaban 5 MG TABLET PO SCH ×2 (09:17→20:23)
[2021-06-13] MEDS: Metoprolol XL (24 HR) Succ 50 MG TAB.ER.24H PO SCH ×2 (09:17→20:23)
[2021-06-13] MEDS: 0.9 % Sodium Chloride 1,000 ML IVC SCH ×2 (09:24→17:33)
[2021-06-13] MEDS: Sennosides/Docusate Sodium TABLET PO SCH (13:02)
[2021-06-13] MEDS: cefTRIAXone 1,000 MG in Water for inj. (sterile) 10 ML IVP SCH (15:41)
[2021-06-14] MEDS: 0.9 % Sodium Chloride 1,000 ML IVC SCH ×2 (04:28→22:13)
[2021-06-14] MEDS: Doxycycline 100 MG in 0.9 % Sodium Chloride Mini Bag 100 ML IVPB SCH ×2 (06:21→17:06)
[2021-06-14] MEDS: Metoprolol XL (24 HR) Succ 50 MG TAB.ER.24H PO SCH ×2 (09:21→20:05)
[2021-06-14] MEDS: Apixaban 5 MG TABLET PO SCH ×2 (09:21→20:05)
[2021-06-14] MEDS: Sennosides/Docusate Sodium TABLET PO SCH (09:21)
[2021-06-14 10:18] LABS: Mean Platelet Volume 11.4 fL (9.4-12.4)
[2021-06-14 10:20] LABS: Hematocrit 39.5 % (35.3-44.9); Hemoglobin 13.3 g/dL (11.5-15.4); Immature Platelets 9.3 % (1.1-6.1); Mean Corpuscular HGB Conc 33.7 g/dL (31.6-35.5); Mean Corpuscular Hemoglobin 29.3 pg (28.0-33.3); Red Blood Count 4.54 M/mcL (3.82-4.97); Red Cell Distribution Width 13.3 % (11.5-14.5); White Blood Count 3.5 K/mcL (4.3-11.1)
[2021-06-14 10:36] LABS: BUN/Creatinine Ratio 18 (6-26); Blood Urea Nitrogen 13 mg/dL (8-23); Calcium 8.3 mg/dL (8.6-10.3); Carbon Dioxide 21 mEq/L (23-29); Chloride 102 mEq/L (98-107); Glucose 115 mg/dL (70-105); Osmolality,Calculated 275 (280-300); Potassium 3.9 mEq/L (3.5-5.1); Sodium 132 mEq/L (136-145); eGFR For African Americans > 60 (> 60); eGFR For Non-African Americans > 60 (> 60)
[2021-06-14] MEDS: cefTRIAXone 1,000 MG in Water for inj. (sterile) 10 ML IVP SCH (17:03)
[2021-06-15] MEDS: Ondansetron ODT 4 MG TAB.RAPDIS SL PRN (05:33)
[2021-06-15] MEDS ORDERED: Metoclopramide 10 MG/2 ML VIAL IVP ONE (05:57)
[2021-06-15] MEDS ORDERED: *HR* Metoprolol 5 MG/5 ML VIAL IVP ONE (05:59)
[2021-06-15] MEDS: Doxycycline 100 MG in 0.9 % Sodium Chloride Mini Bag 100 ML IVPB SCH (06:06)
[2021-06-15] MEDS ORDERED: *HR* LORazepam 2 MG/ML VIAL IVP ONE (06:12)
[2021-06-15 06:48] LABS: ABG Base Excess -5 mEq/L (-2 to 3); ABG HCO3 17 mEq/L (21-27); ABG Oxygen Saturation 77 % (95-98); ABG PCO2 25 mmHg (35-45); ABG PH 7.45 pH Units (7.32-7.45); ABG PO2 39 mmHg (85-104); ABG TCO2 18 mEq/L (20-26)
[2021-06-15 07:01] LABS: BUN/Creatinine Ratio 19 (6-26); Blood Urea Nitrogen 17 mg/dL (8-23); Carbon Dioxide 22 mEq/L (23-29); Chloride 99 mEq/L (98-107); Glucose 103 mg/dL (70-105); Osmolality,Calculated 280 (280-300); Potassium 3.9 mEq/L (3.5-5.1); Sodium 134 mEq/L (136-145); eGFR For African Americans > 60 (> 60); eGFR For Non-African Americans > 60 (> 60)
[2021-06-15] MEDS ORDERED: Morphine Sulfate 2 MG/ML SYRINGE IVP ONE (07:58)
[2021-06-15] MEDS ORDERED: Acetaminophen IV 1,000 MG/100 ML BAG IVPB ONE (07:59)
[2021-06-15] MEDS: Metoprolol XL (24 HR) Succ 50 MG TAB.ER.24H PO SCH (08:31)
[2021-06-15] MEDS: Apixaban 5 MG TABLET PO SCH (08:31)
[2021-06-15] MEDS: Sennosides/Docusate Sodium TABLET PO SCH (08:31)
[2021-06-15 09:21] LABS: Red Blood Count 4.97 M/mcL (3.82-4.97); White Blood Count 10.1 K/mcL (4.3-11.1)
[2021-06-15 09:22] LABS: Hematocrit 43.6 % (35.3-44.9); Mean Corpuscular HGB Conc 34.4 g/dL (31.6-35.5); Mean Corpuscular Hemoglobin 30.2 pg (28.0-33.3); Mean Corpuscular Volume 87.7 fL (83.0-100.0); Platelet Count 219 K/mcL (140-400); Red Cell Distribution Width 13.4 % (11.5-14.5)
[2021-06-15] MEDS: Furosemide 20 MG/2 ML VIAL IVP SCH (10:54)
[2021-06-15] MEDS ORDERED: Morphine Sulfate Oral CONC 10 MG/0.5 ML ORAL.SYG SL PRN (14:56)
[2021-06-16] MEDS: Apixaban 5 MG TABLET PO SCH ×3 (02:42→20:19)
[2021-06-16] MEDS: Metoprolol XL (24 HR) Succ 50 MG TAB.ER.24H PO SCH ×3 (02:42→20:19)
[2021-06-16] MEDS: Furosemide 20 MG/2 ML VIAL IVP SCH (08:08)
[2021-06-16] MEDS: Sennosides/Docusate Sodium TABLET PO SCH (08:09)
[2021-06-16] MEDS: Haloperidol Lactate 5 MG/ML VIAL IVP PRN (09:07)
[2021-06-16 09:56] LABS: Hemoglobin 14.2 g/dL (11.5-15.4); Mean Corpuscular HGB Conc 33.8 g/dL (31.6-35.5); Mean Corpuscular Hemoglobin 29.3 pg (28.0-33.3); Mean Corpuscular Volume 86.6 fL (83.0-100.0); Mean Platelet Volume 11.2 fL (9.4-12.4); Platelet Count 170 K/mcL (140-400); Red Blood Count 4.85 M/mcL (3.82-4.97); Red Cell Distribution Width 13.5 % (11.5-14.5)
[2021-06-16 10:17] LABS: BUN/Creatinine Ratio 31 (6-26); Blood Urea Nitrogen 26 mg/dL (8-23); Carbon Dioxide 23 mEq/L (23-29); Chloride 102 mEq/L (98-107); Glucose 126 mg/dL (70-105); Osmolality,Calculated 290 (280-300); Potassium 3.9 mEq/L (3.5-5.1); Sodium 137 mEq/L (136-145); eGFR For African Americans > 60 (> 60); eGFR For Non-African Americans > 60 (> 60)
[2021-06-16] MEDS: DilTIAZem 50 MG/50 ML IV.SOLN IVC SCH ×3 (10:26→20:17)
[2021-06-16] MEDS: Melatonin 3 MG TABLET PO PRN (20:19)
[2021-06-17] MEDS: DilTIAZem 50 MG/50 ML IV.SOLN IVC SCH ×2 (00:23→04:39)
[2021-06-17] MEDS: Haloperidol Lactate 5 MG/ML VIAL IVP PRN ×2 (03:42→21:17)
[2021-06-17] MEDS: Sennosides/Docusate Sodium TABLET PO SCH (09:09)
[2021-06-17] MEDS: Apixaban 5 MG TABLET PO SCH ×2 (09:10→21:17)
[2021-06-17] MEDS: Furosemide 20 MG/2 ML VIAL IVP SCH (09:11)
[2021-06-17] MEDS: Metoprolol XL (24 HR) Succ 50 MG TAB.ER.24H PO SCH ×2 (09:12→21:17)
[2021-06-17] MEDS: Melatonin 3 MG TABLET PO PRN (21:17)
[2021-06-17] MEDS ORDERED: *HR* LORazepam 2 MG/ML VIAL IVP ONE (21:46)
[2021-06-18] MEDS: Haloperidol Lactate 5 MG/ML VIAL IVP PRN ×3 (04:33→20:01)
[2021-06-18] MEDS: Furosemide 20 MG/2 ML VIAL IVP SCH (09:36)
[2021-06-18] MEDS: Apixaban 5 MG TABLET PO SCH ×2 (09:37→20:01)
[2021-06-18] MEDS: Metoprolol XL (24 HR) Succ 50 MG TAB.ER.24H PO SCH ×2 (09:37→20:00)
[2021-06-18] MEDS: Sennosides/Docusate Sodium TABLET PO SCH (09:37)
[2021-06-18] MEDS ORDERED: *HR* OxyCODONE Immed Rel 5 MG TABLET PO ONE (14:35)
[2021-06-18 14:53] LABS: Red Cell Distribution Width 13.6 % (11.5-14.5)
[2021-06-18 14:55] LABS: Hematocrit 43.1 % (35.3-44.9); Hemoglobin 14.2 g/dL (11.5-15.4); Immature Platelets 10.7 % (1.1-6.1); Mean Corpuscular HGB Conc 32.9 g/dL (31.6-35.5); Mean Corpuscular Hemoglobin 29.3 pg (28.0-33.3); Mean Corpuscular Volume 88.9 fL (83.0-100.0); Mean Platelet Volume 11.3 fL (9.4-12.4); Red Blood Count 4.85 M/mcL (3.82-4.97); White Blood Count 11.7 K/mcL (4.3-11.1)
[2021-06-18 15:27] LABS: BUN/Creatinine Ratio 55 (6-26); Blood Urea Nitrogen 39 mg/dL (8-23); Calcium 9.1 mg/dL (8.6-10.3); Carbon Dioxide 24 mEq/L (23-29); Chloride 103 mEq/L (98-107); Glucose 212 mg/dL (70-105); Osmolality,Calculated 306 (280-300); Potassium 3.9 mEq/L (3.5-5.1); Sodium 140 mEq/L (136-145); eGFR For African Americans > 60 (> 60); eGFR For Non-African Americans > 60 (> 60)
[2021-06-18] MEDS: Melatonin 3 MG TABLET PO PRN (20:00)
[2021-06-18] MEDS: *HR* OxyCODONE Immed Rel 5 MG TABLET PO PRN (20:23)
[2021-06-19] MEDS: *HR* OxyCODONE Immed Rel 5 MG TABLET PO PRN (01:11)
[2021-06-19] MEDS: Haloperidol Lactate 5 MG/ML VIAL IVP PRN ×2 (01:11→07:55)
[2021-06-19] MEDS ORDERED: *HR* Metoprolol 5 MG/5 ML VIAL IVP ONE (03:47)
[2021-06-19 07:48] LABS: Hematocrit 41.2 % (35.3-44.9); Hemoglobin 13.5 g/dL (11.5-15.4); Immature Platelets 12.9 % (1.1-6.1); Mean Corpuscular HGB Conc 32.8 g/dL (31.6-35.5); Mean Corpuscular Hemoglobin 29.2 pg (28.0-33.3); Mean Corpuscular Volume 89.2 fL (83.0-100.0); Mean Platelet Volume 11.9 fL (9.4-12.4); Red Blood Count 4.62 M/mcL (3.82-4.97); Red Cell Distribution Width 13.7 % (11.5-14.5); White Blood Count 11.5 K/mcL (4.3-11.1)
[2021-06-19 08:06] LABS: BUN/Creatinine Ratio 61 (6-26); Blood Urea Nitrogen 51 mg/dL (8-23); Carbon Dioxide 22 mEq/L (23-29); Chloride 103 mEq/L (98-107); Glucose 187 mg/dL (70-105); Osmolality,Calculated 309 (280-300); Potassium 4.2 mEq/L (3.5-5.1); Sodium 140 mEq/L (136-145); eGFR For African Americans > 60 (> 60); eGFR For Non-African Americans > 60 (> 60)
[2021-06-19] MEDS ORDERED: *HR* Metoprolol 5 MG/5 ML VIAL IVP STA (08:16)
[2021-06-19] MEDS ORDERED: *HR* LORazepam 2 MG/ML VIAL IVP ONE ×2 (08:23→10:30)
[2021-06-19] MEDS ORDERED: *HR* LORazepam 2 MG/ML VIAL ONE (08:37)
[2021-06-19] MEDS: Furosemide 20 MG/2 ML VIAL IVP SCH (08:50)
[2021-06-19] MEDS: Apixaban 5 MG TABLET PO SCH ×2 (10:36→19:01)
[2021-06-19] MEDS: Metoprolol XL (24 HR) Succ 50 MG TAB.ER.24H PO SCH ×2 (10:36→19:01)
[2021-06-19] MEDS: Sennosides/Docusate Sodium TABLET PO SCH (10:36)
[2021-06-19 12:01] VITALS: BP 117/59; PULSE 84; O2SAT 96
[2021-06-19 12:05] VITALS: TEMP 97
[2021-06-19] MEDS ORDERED: *HR* Metoprolol 5 MG/5 ML VIAL IVP PRN (12:08)
[2021-06-19] MEDS: *HR* LORazepam 2 MG/ML VIAL IVP PRN ×2 (15:13→17:03)
[2021-06-19] MEDS: Morphine Sulfate 2 MG/ML SYRINGE IVP PRN ×4 (15:14→20:47)
[2021-06-19] MEDS ORDERED: *HR* LORazepam 2 MG/ML VIAL IVP PRN (17:06)
[2021-06-20] MEDS ORDERED: Dexamethasone Sodium Phos/PF 10 MG/ML VIAL IVP SCH (09:00)
== END 2021-06-19 22:30 | disposition expired | DRG 871 ==
LOC: 3BNU 15:00 → EMEROOARM 15:00 → SUATTDRO 17:17 → 3BNU 19:02 → SUATTDRO 06-10 13:21 → 3NENU 06-15 12:45
PROVIDERS: ADMIT Student in an Organized Health Care Education/Training Program; ATTEND Internal Medicine